=== PATIENT | female | born 1955 ===

== ENCOUNTER 2021-12-22 18:42 | Emergency (ER) | payer MEDICARE, OTHER ==
[~2021-12-22] VITALS: Ht 162.6 cm; Wt 79.4 kg
[2021-12-22 18:56] VITALS: BP 177/78
== END 2021-12-22 20:34 | disposition home or self-care (01) ==
LOC: ER 18:43
DX: S05.12XA Contusion of eyeball and orbital tissues, left eye, initial encounter (principal); D09.9 Carcinoma in situ, unspecified; W19.XXXA Unspecified fall, initial encounter; Y93.89 Activity, other specified; Y92.89 Other specified places as the place of occurrence of the external cause; Y99.8 Other external cause status
CPT/HCPCS: 99281